=== PATIENT | female | born 1980 | race Caucasian/White ===

== ENCOUNTER 2017-06-30 08:25 | Emergency (ER) | payer BC, OTHER ==
[~2017-06-30] VITALS: Ht 165.1 cm; Wt 64.9 kg
[2017-06-30 08:25] VITALS: BP_SYST 156
[~2017-06-30 08:25] MED LIST: CETI-101 PO; [UNRECOGNIZED DRUG - OTHER] PO
[2017-06-30] MEDS ORDERED: KETOROLAC TROMETHAMINE 60 MG/2 ML VIAL IM ONE (08:45)
[2017-06-30] MEDS ORDERED: LORazepam 1 MG TABLET PO ONE (08:45)
[2017-06-30 11:15] VITALS: BP_SYST 130
== END 2017-06-30 11:15 | disposition home or self-care (01) ==
LOC: SED 08:25
DX: M43.6 Torticollis (principal)
CPT/HCPCS: 72125; 81025; 96372; 99284; J1885

== ENCOUNTER 2018-02-20 01:46 | Emergency (ER) | payer OTHER ==
[~2018-02-20] VITALS: Ht 165.1 cm; Wt 65.8 kg
[2018-02-20 02:20] VITALS: BP_SYST 114
--- NOTE | 2018-02-20 02:20 | NUR ---
Pt wheeled to bed 6 for evaluation
--- NOTE | 2018-02-20 02:40 | NUR ---
PT AAOx4 ambulated into ED c/o nausea/vomiting since 1800 last night. SKin pink dry and warm, breathing even and unlabored. No other injuries/complaints per pt/noted. Will continue to monitor
--- NOTE | 2018-02-20 02:48 | NUR ---
ER Dr. Grant at bedside examining patient.
[2018-02-20] MEDS ORDERED: MECLIZINE HCL 25 MG TABLET (ANITVERT) PO ONE (03:00)
[2018-02-20] MEDS ORDERED: ONDANSETRON HCL 4 MG/2 ML VIAL IVP ONE (03:00)
[2018-02-20] MEDS ORDERED: NACL 0.9% 1,000 ML IV ONE (03:00)
--- NOTE | 2018-02-20 03:40 | NUR ---
Zofran 4mg IVP, Antivert 25mg PO, NS Bolus IVF administered. Pt tolerated well. No adverse reactions noted.
[2018-02-20 03:44] LABS: BASOPHILS # (AUTO) 0.1 K/uL (0.0-0.2); BASOPHILS % (AUTO) 0.3 % (0.0-2.0); HEMOGLOBIN 13.7 g/dL (12.0-16.0); LYMPHOCYTES # (AUTO) 0.7 K/uL (1.0-5.5); LYMPHOCYTES % (AUTO) 4.3 % (20.5-51.5); MEAN CORPUSCULAR HEMOGLOBIN 30 pg (27-31); MEAN CORPUSCULAR HGB CONC 32 % (32-36); MEAN CORPUSCULAR VOLUME 93 fL (79.0-98.0); MONOCYTES # (AUTO) 0.8 K/uL (0.0-1.0); MONOCYTES % (AUTO) 4.8 % (1.7-9.3); NEUTROPHILS # (AUTO) 15.8 K/uL (1.8-7.7); NEUTROPHILS % (AUTO) 90.6 % (40.0-70.0); PLATELET COUNT (AUTO) 267 K/uL (130-430); RED BLOOD CELL COUNT(AUTO) 4.64 MIL/uL (4.2-6.2); RED CELL DISTRIBUTION WIDTH 11.9 % (9.0-15.0); WHITE BLOOD COUNT (AUTO) 17.4 K/uL (4.8-10.8)
[2018-02-20 03:54] LABS: CALCIUM 8.9 mg/dL (8.4-11.0); CREATININE 0.68 mg/dL (0.55-1.30); POTASSIUM 3.8 mmol/L (3.5-5.1)
--- NOTE | 2018-02-20 03:56 | NUR ---
[employer] provided per pt request
[2018-02-20 03:59] LABS: TOTAL BILIRUBIN 0.4 mg/dL (0.0-1.0)
--- NOTE | 2018-02-20 05:05 | NUR ---
Patient assisted to restroom. Patient noted to ambulate with steady gait. No acute distress noted.
[2018-02-20 06:04] LABS: BILIRUBIN,URINE NEGATIVE (NEGATIVE); BLOOD, URINE NEGATIVE (NEGATIVE); CLARITY/URINE CLEAR (CLEAR); COLOR,URINE YELLOW (YELLOW); GLUCOSE,URINE NEGATIVE (NEGATIVE); KETONES,URINE 3+ (NEGATIVE); LEUKOCYTE ESTERASE ,URINE NEGATIVE (NEGATIVE); NITRITE, URINE NEGATIVE (NEGATIVE); PH,URINE 7.5 (5.0-8.0); PROTEIN URINE NEGATIVE (NEGATIVE); UROBILINOGEN,URINE 0.2 (0.2-1.0)
[2018-02-20 06:10] LABS: BACTERIA,URINE FEW /HPF (None Seen); MUCUS,URINE 1+ /LPF (None Seen); RBC,URINE 0-3 /HPF (0-3); WBC,URINE 0-3 /HPF (0-3)
[2018-02-20 06:20] VITALS: BP_SYST 119
--- NOTE | 2018-02-20 06:20 | NUR ---
Patient given written and verbal discharge instructions and verbalizes understanding. ER MD discussed with patient the results and treatment provided. Patient in stable condition. ID arm band removed. IV catheter removed intact and dressing applied, no active bleeding. Rx of Zofran given. Patient educated on pain management and to follow up with PMD. Pain Scale 0/10. Opportunity for questions provided and answered. Medication side effect fact sheet provided.
== END 2018-02-20 06:20 | disposition home or self-care (01) ==
LOC: SED 01:46
DX: B34.9 Viral infection, unspecified (principal); Z90.89 Acquired absence of other organs
CPT/HCPCS: 36415; 80053; 81000; 85025; 96361; 96374; 99284; J2405; J7030; J8597

== ENCOUNTER 2021-06-13 18:27 | Emergency (ER) | payer OTHER, SELFPAY ==
[~2021-06-13] VITALS: Ht 165.1 cm; Wt 59.0 kg
[~2021-06-13 18:27] MED LIST changes: -CETI-101 PO; +CETI-80 PO
[2021-06-13 18:31] VITALS: BP_SYST 136
--- NOTE | 2021-06-13 18:40 | NUR ---
Patient to ER bed 03 to gown for evaluation.
[2021-06-13] MEDS ORDERED: NACL 0.9% 1,000 ML IV ONE (18:45)
[2021-06-13] MEDS ORDERED: KETOROLAC TROMETHAMINE 30 MG VIAL IVP ONE (18:45)
--- NOTE | 2021-06-13 18:56 | NUR ---
Pt in bed resting with at bedside. Pt c/o left flank pain rates it 8/10 non-radiating. A&Ox4. Skin intact. No chest pain and no sob. Denies n/v. Bed in lowest position.
--- NOTE | 2021-06-13 18:57 | NUR ---
ER physician at bedside.
[2021-06-13 19:03] LABS: BLOOD, URINE 3+ (NEGATIVE); COLOR,URINE ORANGE (YELLOW); KETONES,URINE NEGATIVE (NEGATIVE); PH,URINE 5.5 (5.0-8.0); PROTEIN URINE 3+ (NEGATIVE)
--- NOTE | 2021-06-13 19:09 | NUR ---
Iv 20g placed on right AC using aseptic technique and no infiltration noted. Blood drawn. Pt requests anxiety med. ER physician made aware.
[2021-06-13 19:10] LABS: BILIRUBIN,URINE NEGATIVE (NEGATIVE); CLARITY/URINE HAZY (CLEAR); GLUCOSE,URINE NEGATIVE (NEGATIVE)
[2021-06-13 19:11] LABS: LEUKOCYTE ESTERASE ,URINE NEGATIVE (NEGATIVE); NITRITE, URINE NEGATIVE (NEGATIVE)
[2021-06-13 19:12] LABS: BACTERIA,URINE FEW /HPF (None Seen); MUCUS,URINE None Seen /LPF (None Seen); RBC,URINE 50-80 /HPF (0-3); WBC,URINE 0-3 /HPF (0-3)
--- NOTE | 2021-06-13 19:15 | NUR ---
Pt left to CT via wheelchair.
[2021-06-13 19:27] LABS: EOSINOPHILS # (AUTO) 0.1 K/uL (0.0-0.4); HEMATOCRIT 40.7 % (36-48); HEMOGLOBIN 13.6 g/dL (12.0-16.0); MEAN CORPUSCULAR HGB CONC 33 % (32-36); MEAN CORPUSCULAR VOLUME 91 fL (79.0-98.0); MONOCYTES # (AUTO) 0.8 K/uL (0.0-1.0); RED BLOOD CELL COUNT(AUTO) 4.49 MIL/uL (4.2-6.2); WHITE BLOOD COUNT (AUTO) 11.3 K/uL (4.8-10.8)
[2021-06-13 19:30] LABS: CALCIUM 9.5 mg/dL (8.4-11.0); CREATININE 0.77 mg/dL (0.55-1.30); POTASSIUM 3.4 mmol/L (3.5-5.1)
[2021-06-13] MEDS ORDERED: LORazepam 2 MG/ML VIAL IVP ONE (19:30)
--- NOTE | 2021-06-13 19:30 | NUR ---
Pt back from CT Scan. Pt medicated, PIV patent. Vitally stable.
[2021-06-13 19:33] LABS: BASOPHILS % (AUTO) 0.4 % (0.0-2.0); EOSINOPHILS % (AUTO) 0.7 % (0.0-4.0); LYMPHOCYTES # (AUTO) 2.1 K/uL (1.0-5.5); LYMPHOCYTES % (AUTO) 18.8 % (20.5-51.5); MEAN CORPUSCULAR HEMOGLOBIN 30 pg (27-31); MONOCYTES % (AUTO) 7.2 % (1.7-9.3); NEUTROPHILS # (AUTO) 8.3 K/uL (1.8-7.7); NEUTROPHILS % (AUTO) 72.9 % (40.0-70.0); PLATELET COUNT (AUTO) 262 K/uL (130-430); RED CELL DISTRIBUTION WIDTH 13.2 % (9.0-15.0)
[2021-06-13 19:36] LABS: ALBUMIN 4.2 g/dL (3.4-4.8); TOTAL BILIRUBIN 0.4 mg/dL (0.0-1.0)
[2021-06-13] MEDS ORDERED: HYDR-3698 PO (20:04)
--- NOTE | 2021-06-13 20:24 | NUR ---
PIV removed. Vital signs stable. Pt discharged on a wheelchair accompanied by pt's spouse. Discharge instructions given.
[2021-06-13 20:34] VITALS: BP_SYST 131
== END 2021-06-13 20:34 | disposition home or self-care (01) ==
LOC: SED 18:27
DX: R10.9 Unspecified abdominal pain (principal)
CPT/HCPCS: 36415; 74176; 80053; 81000; 81025; 83690; 85025; 96374; 96375; 99284; J1885; J2060; 81002

== ENCOUNTER 2022-10-01 06:00 | Day surgery (SDC) | payer OTHER ==
[~2022-10-01] VITALS: Ht 167.6 cm; Wt 66.0 kg
[~2022-10-01 06:00] MED LIST changes: +HYDR-3698 PO
[2022-10-01] MEDS ORDERED: LR 1,000 ML IV.SOLN IV ONE (07:21)
[2022-10-01] MEDS ORDERED: ONDANSETRON HCL 4 MG/2 ML VIAL ONE (07:21)
[2022-10-01] MEDS ORDERED: LIDOCAINE 2%, 20 ML MDV ONE (07:21)
[2022-10-01] MEDS ORDERED: fentaNYL CITRATE/PF 100 MCG/2 ML AMP ONE (07:21)
[2022-10-01] MEDS ORDERED: SEVOFLURANE 15 MIN GAS INH ONE (07:21)
[2022-10-01] MEDS ORDERED: NS IRRIG SOLN 5000 ML IR ONE (07:21)
[2022-10-01] MEDS ORDERED: DEXAMETHASONE SOD PHOSPHATE 4 MG/ML VIAL ONE (07:21)
[2022-10-01] MEDS ORDERED: PROPOFOL 200MG/ 20ML VIAL (DIPRIVAN) IV ONE (07:21)
[2022-10-01] MEDS ORDERED: ceFAZolin SODIUM 2 GM VIAL ONE (07:21)
[2022-10-01] MEDS ORDERED: MIDAZOLAM HCL 2 MG/2 ML VIAL (VERSED) ONE (07:21)
[2022-10-01] MEDS ORDERED: hydrALAZINE HCL 20 MG/ML VIAL IVP PRN (08:15)
[2022-10-01] MEDS ORDERED: LR 1,000 ML IV SCH (08:15)
[2022-10-01] MEDS ORDERED: HYDROmorphone 1 MG/ML INJ. CARTRIDGE IVP PRN ×2 (08:15)
[2022-10-01] MEDS ORDERED: MEPERIDINE HCL/PF 25 MG/ML DISP.SYRIN IVP PRN (08:15)
[2022-10-01] MEDS ORDERED: METOCLOPRAMIDE HCL 10 MG/2 ML VIAL IVP PRN (08:15)
[2022-10-01] MEDS ORDERED: HYDROmorphone 1 MG/ML INJ. CARTRIDGE ONE (08:41)
[2022-10-01] MEDS ORDERED: KETOROLAC TROMETHAMINE 30 MG VIAL ONE (08:55)
[2022-10-01] MEDS ORDERED: OXYCODONE/ACETAMINOPHEN 5-325 TABLET PO PRN ×2 (09:00)
[2022-10-01] MEDS ORDERED: HYDROcodone/ACETAMIN 5-325 MG TAB (NORCO/ VICODIN) PO PRN (09:00)
[2022-10-01] MEDS ORDERED: ONDANSETRON HCL 4 MG/2 ML VIAL IVP PRN (09:00)
[2022-10-01] MEDS ORDERED: KETOROLAC TROMETHAMINE 30 MG VIAL IM ONE (09:00)
[2022-10-01 10:39] VITALS: BP_SYST 118
== END 2022-10-01 10:25 | disposition home or self-care (01) ==
LOC: SMU 06:00 → SDS 06:00
PROVIDERS: ATTEND Specialist
DX: N94.89 Other specified conditions associated with female genital organs and menstrual cycle (principal); N84.0 Polyp of corpus uteri; N92.1 Excessive and frequent menstruation with irregular cycle; N72 Inflammatory disease of cervix uteri; I10 Essential (primary) hypertension; J45.909 Unspecified asthma, uncomplicated; Z79.899 Other long term (current) drug therapy
CPT/HCPCS: 87081; 88305; 88341; 88342; 88361; C1819; J1100; J1170; J1885; J2001; J2405; J2704; J3010; J3465; J7120